=== PATIENT | female | born 2000 | race Caucasian/White ===

== ENCOUNTER 2021-08-01 10:54 | Emergency (ER) | payer OTHER ==
[~2021-08-01 10:54] MED LIST: ADULT GLYCERIN1 EACH PR; BENTYL 10MG CAP10 MG PO; CEFUROXIME500 MG PO; COLACE 100MG C100 MG PO; MACROBID 100 M100 MG PO; OMNICEF 300 MG300 MG PO; PYRIDIUM200 MG PO; ULTRAM50 MG PO; ZOFRAN ODT 4 MG4 MG PO; ZOFRAN4 MG PO
[2021-08-01 12:03] LABS: HEMOGLOBIN 11.9 gm/dl (12.3-15.3); RED BLOOD COUNT 4.85 M/UL (4.00-5.10); WHITE BLOOD COUNT 9.9 K/UL (4.5-11.0)
[2021-08-01 12:22] LABS: BUN/CREATININE RATIO 13 (0-10)
== END 2021-08-01 12:10 | disposition home or self-care (01) ==
LOC: ER1 10:54
PROVIDERS: Physician Assistant Medical
DX: R07.9 Chest pain, unspecified (principal); R55 Syncope and collapse; K21.9 Gastro-esophageal reflux disease without esophagitis; Z88.8 Allergy status to other drugs, medicaments and biological substances
CPT/HCPCS: 70450; 71045; 80053; 82550; 82553; 83874; 84439; 84443; 84484; 85025; 93005; 99285

== ENCOUNTER → 2021-12-02 | Outpatient (CLI) | payer OTHER | LOC: KOH-I 09:39 | DX: M79.672 Pain in left foot (principal); M79.671 Pain in right foot | CPT/HCPCS: 73630 ==